=== PATIENT | female | born 1990 | race Caucasian/White ===

== ENCOUNTER 2017-06-19 20:19 | Inpatient (IN) ==
[2017-06-19 21:09] LABS: URINE SOURCE VOIDED
[2017-06-19 21:19] LABS: UR AMPHETAMINES QUAL PRESUMPTIVE POSITIVE (NONE DETECT); UR BARBITUATES QUAL NONE DETECTED (NONE DETECT); UR BENZODIAZEPIN QUAL NONE DETECTED (NONE DETECT); UR CANNABINOIDS QUAL NONE DETECTED (NONE DETECT); UR COCAINE QUAL NONE DETECTED (NONE DETECT); UR MDMA QUAL NONE DETECTED (NONE DETECT); UR METHADONE QUAL NONE DETECTED (NONE DETECT); UR METHAMPHETAMINE QUAL PRESUMPTIVE POSITIVE (NONE DETECT); UR OPIATES QUAL NONE DETECTED (NONE DETECT); UR OXYCODONE QUAL NONE DETECTED (NONE DETECT); UR PCP QUAL NONE DETECTED (NONE DETECT); UR TCA QUAL NONE DETECTED (NONE DETECT)
[2017-06-19 21:41] LABS: BILIRUBIN URINE NEGATIVE (NEGATIVE); BLOOD URINE NEGATIVE (NEGATIVE); CLARITY CLEAR (CLEAR); COLOR YELLOW; GLUCOSE URINE NEGATIVE (NEGATIVE); LEUKOCYTES URINE 1+ (NEGATIVE); NITRITE URINE NEGATIVE (NEGATIVE); PH URINE 6.5; PROTEIN URINE NEGATIVE (NEGATIVE); UROBILINOGEN URINE NORMAL
[2017-06-19] MEDS: LR 1,000 ML IV SCH (22:50)
[2017-06-19] MEDS ORDERED: STADOL IV PRN (22:56)
[2017-06-19] MEDS ORDERED: PEPCID PO PRN (22:56)
[2017-06-19] MEDS ORDERED: PEPCID PO ONE (22:56)
[2017-06-19] MEDS ORDERED: PITOCIN 30 UNITS/LR 30 UNITS/500 ML IV.SOLN IV SCH (22:56)
[2017-06-19] MEDS ORDERED: REGLAN PO ONE (22:56)
[2017-06-19] MEDS ORDERED: ZOFRAN IV PRN (22:56)
[2017-06-19] MEDS ORDERED: TYLENOL PO PRN (22:56)
[2017-06-19] MEDS ORDERED: KEFZOL 1 GM/D5W 1 GM/50 ML IVPB IV PRN (22:56)
[2017-06-19] MEDS ORDERED: PEPCID IV PRN (22:56)
[2017-06-19] MEDS ORDERED: MINERAL OIL PRN (22:58)
[2017-06-19] MEDS ORDERED: XYLOCAINE-MPF 1% INJ PRN (22:59)
[2017-06-19] MEDS ORDERED: SODIUM CHLORIDE 0.9% INJ SCH (23:00)
[2017-06-19 23:25] LABS: MANUAL DIFF NEEDED? NO
[2017-06-19 23:26] LABS: BASO% 0.2 % (0.0-0.8); EOS# 0.09 X1000 (0.0-0.7); EOS% 0.8 % (0.0-10.0); HEMATOCRIT 35.8 % (37.0-47.0); HEMOGLOBIN 12.3 g/dL (12.0-16.0); IMM GRAN# 0.01 X1000 (0.0-0.04); IMM GRAN% 0.1 % (0.0-0.5); LYMPH# 2.38 X1000 (1.2-3.4); LYMPH% 22.2 % (20.5-51.1); MCH 30.8 PG (27-31); MCHC 34.4 g/dL (33-37); MCV 89.7 FL (81-99); MONO# 0.66 X1000 (0.11-0.59); MONO% 6.2 % (1.7-9.3); MPV 11.6 FL (7.4-10.4); NEUT% 70.5 % (42.2-75.2); PLT 172 X1000 (130-400); RBC 3.99 XMIL (4.2-5.4)
[2017-06-20] MEDS ORDERED: XYLOCAINE-MPF 1% INJ ONE (08:30)
[2017-06-20] MEDS ORDERED: NAROPIN 0.2% EPIDURAL SCH (08:30)
[2017-06-20] MEDS ORDERED: AMPICILLIN 2 GM/NS 2 GM/100 ML IVPB IV ONE (09:20)
[2017-06-20] MEDS ORDERED: LR 1,000 ML ONE (09:54)
[2017-06-20] MEDS: LR 1,000 ML IV SCH ×2 (13:34→18:12)
[2017-06-20] MEDS ORDERED: EPHEDRINE IV ONE (13:43)
[2017-06-20] MEDS: AMPICILLIN 1 GM/NS 1 GM/50 ML IVPB IV SCH ×2 (14:00→18:00)
[2017-06-20] MEDS ORDERED: MARCAINE 0.25% PF ONE (18:18)
[2017-06-20] MEDS ORDERED: NORCO-5 PO PRN (19:24)
[2017-06-20] MEDS ORDERED: PERCOCET-5 PO PRN (19:24)
[2017-06-20] MEDS ORDERED: MINERAL OIL PO PRN (19:24)
[2017-06-20] MEDS ORDERED: PITOCIN 20 UNITS/LR 20 UNITS/1,000 ML IV.SOLN IV SCH (19:24)
[2017-06-20] MEDS ORDERED: AMBIEN PO PRN (19:24)
[2017-06-20] MEDS ORDERED: XYLOCAINE-MPF 1% INJ PRN (19:24)
[2017-06-20] MEDS ORDERED: BENADRYL PO PRN (19:24)
[2017-06-20] MEDS ORDERED: BOOSTRIX VACCINE IM ONE (19:24)
[2017-06-20] MEDS ORDERED: HYDROXYZINE PO PRN (19:24)
[2017-06-20] MEDS ORDERED: M-M-R II VACCINE SUBQ ONE (19:24)
[2017-06-20] MEDS ORDERED: PITOCIN IM PRN (19:24)
[2017-06-20] MEDS ORDERED: HYDROXYZINE IM PRN (19:24)
[2017-06-20] MEDS ORDERED: PITOCIN 30 UNITS/LR 30 UNITS/500 ML IV.SOLN IV ONE (19:24)
[2017-06-20] MEDS ORDERED: CYTOTEC PO PRN (19:24)
[2017-06-20] MEDS ORDERED: BENADRYL IV PRN (19:24)
[2017-06-20] MEDS ORDERED: PERI MEDS (DERMOPLAST/NUPERCAINAL/TUCKS) MISC PRN (19:24)
[2017-06-20] MEDS: PERICOLACE PO SCH (22:15)
[2017-06-20] MEDS: MOTRIN PO PRN (22:15)
[2017-06-21 06:45] LABS: MANUAL DIFF NEEDED? NO
[2017-06-21 07:12] LABS: BASO% 0.1 % (0.0-0.8); EOS# 0.07 X1000 (0.0-0.7); EOS% 0.7 % (0.0-10.0); HEMATOCRIT 30.9 % (37.0-47.0); HEMOGLOBIN 10.2 g/dL (12.0-16.0); IMM GRAN# 0.01 X1000 (0.0-0.04); IMM GRAN% 0.1 % (0.0-0.5); LYMPH# 2.16 X1000 (1.2-3.4); LYMPH% 21.5 % (20.5-51.1); MCH 30.4 PG (27-31); MCV 92.2 FL (81-99); MPV 11.9 FL (7.4-10.4); NEUT% 68.6 % (42.2-75.2); PLT 150 X1000 (130-400); RBC 3.35 XMIL (4.2-5.4)
[2017-06-21] MEDS: PRECARE PO SCH (09:32)
[2017-06-21] MEDS: SUBUTEX SL SCH ×3 (09:32→17:23)
[2017-06-21] MEDS: MOTRIN PO PRN ×2 (12:25→21:35)
[2017-06-21] MEDS: PERICOLACE PO SCH (21:35)
[2017-06-22 10:16] VITALS: BP 118/80
[2017-06-22] MEDS: PRECARE PO SCH (14:23)
[2017-06-22] MEDS: SUBUTEX SL SCH ×2 (14:24→14:25)
== END 2017-06-22 14:20 | disposition home or self-care (01) ==
LOC: OPLD 20:19 → P.LD 20:26
PROVIDERS: ADMIT Obstetrics & Gynecology; ATTEND Obstetrics & Gynecology